=== PATIENT | male | born 1965 | race Caucasian/White ===

== ENCOUNTER 2017-08-15 15:08 | Outpatient (CLI) | payer OTHER | END 2017-08-15 15:09 | disposition home or self-care (01) | LOC: SC 15:08 | PROVIDERS: ATTEND Internal Medicine Pulmonary Disease | DX: G47.30 Sleep apnea, unspecified (principal); R06.83 Snoring | CPT/HCPCS: 99203; 99212 ==

== ENCOUNTER 2017-10-02 19:23 | Outpatient (CLI) | payer OTHER | END 2017-10-02 19:24 | disposition home or self-care (01) | LOC: SC 19:23 | PROVIDERS: ATTEND Internal Medicine Pulmonary Disease | DX: G47.33 Obstructive sleep apnea (adult) (pediatric) (principal); G47.61 Periodic limb movement disorder | CPT/HCPCS: 95810 ==

== ENCOUNTER 2017-10-24 09:04 | Outpatient (CLI) | payer OTHER | END 2017-10-24 09:05 | disposition home or self-care (01) | LOC: SC 09:04 | PROVIDERS: ATTEND Internal Medicine Pulmonary Disease | DX: G47.33 Obstructive sleep apnea (adult) (pediatric) (principal) | CPT/HCPCS: 99212; 99213 ==

== ENCOUNTER 2017-12-05 09:52 | Outpatient (CLI) | payer OTHER | END 2017-12-05 09:53 | disposition home or self-care (01) | LOC: SC 09:52 | PROVIDERS: ATTEND Nurse Practitioner Family | DX: G47.33 Obstructive sleep apnea (adult) (pediatric) (principal) | CPT/HCPCS: 99212; 99214 ==

== ENCOUNTER 2018-03-06 09:40 | Outpatient (CLI) | payer OTHER | END 2018-03-06 09:41 | disposition home or self-care (01) | LOC: SC 09:40 | PROVIDERS: ATTEND Nurse Practitioner Family | DX: G47.33 Obstructive sleep apnea (adult) (pediatric) (principal) | CPT/HCPCS: 99212; 99214 ==

== ENCOUNTER 2018-05-25 08:37 | Outpatient (CLI) | payer OTHER | END 2018-05-25 08:38 | disposition home or self-care (01) | LOC: SC 08:37 | PROVIDERS: ATTEND Nurse Practitioner Family | DX: G47.33 Obstructive sleep apnea (adult) (pediatric) (principal) | CPT/HCPCS: 99212; 99214 ==

== ENCOUNTER 2018-11-09 10:41 | Day surgery (SDC) | payer OTHER ==
[2018-11-09] MEDS ORDERED: fentaNYL 250 MCG/5 ML VIAL IVP ONE (12:56)
[2018-11-09] MEDS ORDERED: MIDAZOLAM 2 MG/2 ML VIAL IVP ONE (12:56)
[2018-11-09] MEDS ORDERED: LACTATED RINGERS 1,000 ML IV ONE (12:56)
[2018-11-09 13:50] VITALS: BP 107/75
== END 2018-11-09 10:42 | disposition home or self-care (01) ==
LOC: SDS 10:41
PROVIDERS: ATTEND Surgery
PROC: 0DJD8ZZ Inspection of Lower Intestinal Tract, Via Natural or Artificial Opening Endoscopic (ICD-10-PCS; principal; 2018-11-09 11:45)
DX: Z12.11 Encounter for screening for malignant neoplasm of colon (principal); E66.9 Obesity, unspecified; K57.30 Diverticulosis of large intestine without perforation or abscess without bleeding; K56.41 Fecal impaction; K64.8 Other hemorrhoids; Z68.38 Body mass index [BMI] 38.0-38.9, adult; Z87.891 Personal history of nicotine dependence
CPT/HCPCS: 45378; J3010; J7120

== ENCOUNTER 2019-08-15 17:05 | Outpatient (CLI) | payer OTHER | END 2019-08-15 17:06 | disposition home or self-care (01) | LOC: COV 17:05 | PROVIDERS: ATTEND Family Medicine | DX: R05 Cough (principal) ==

== ENCOUNTER 2019-08-25 11:02 | Emergency (ER) | payer OTHER ==
--- NOTE | 2019-08-25 11:31 | ED Physician Documentation ---
PD HPI URI - Stated complaint Stated Complaint: C+ SOA - Chief complaint Chief Complaint: Resp - History obtained from History obtained from: Patient - History of Present Illness Timing - onset: How many weeks ago (2-3) Timing duration: Weeks (2) Timing details: Gradual onset, Still present Associated symptoms: Fever, Chills (He started with a cough and some feverishness and general malaise about 2 1/2 to 3 weeks ago. He was tested for [place] it and get the results back 2 weeks ago that was positive. He had been persisting with a cough over the last couple of weeks. His started getting ill about 1 to 1-1/2 weeks ago. The patient states he started having increased trouble breathing with a little bit increased cough and feverish with chills in the last day or 2. Lightly productive cough but no hemoptysis. 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 He developed some cough and fevers about a week after that.). No: Travel, Immunocompromised, COPD / asthma Similar symptoms before: Has not had sx before (He is usually healthy and active and rides a bike about 100 miles a week and does not have any exertionally related chest pain or dyspnea typically) Recently seen: Not recently seen Review of Systems Constitutional: reports: Fever, Chills (the past 1-2 days), Myalgias (for 3 weeks), Fatigue. denies: Weight Loss Nose: denies: Rhinorrhea / runny nose, Congestion Throat: denies: Sore throat Cardiac: denies: Chest pain / pressure, Palpitations, Pedal edema, Calf pain Respiratory: reports: Dyspnea, Cough (for 3 weeks), Wheezing. denies: Hemoptysis GI: denies: Nausea, Vomiting, Diarrhea : denies: Dysuria, Frequency Neurologic: reports: Generalized weakness. denies: Near syncope PD PAST MEDICAL HISTORY - Past Medical History Past Medical History: No Cardiovascular: None Respiratory: None Endocrine/Autoimmune: None GI: None : None HEENT: None Psych: Depression Musculoskeletal: None Derm: None - Past Surgical History Past Surgical History: No HEENT: Tonsil/Adenoidectomy - Present Medications Home Medications: Ambulatory Orders Medication Instructions Recorded Confirmed buPROPion HCL [Bupropion HCl Sr] 150 mg PO DAILY 11/09/18 08/25/19 Albuterol Sulfate [Albuterol 2 puffs IH QID #1 hfa.aer.ad 08/25/19 Sulfate Hfa] Benzonatate [Tessalon Perle] 100 - 200 mg PO TID PRN #30 capsule 08/25/19 Doxycycline Monohydrate 100 mg PO BID #14 tablet 08/25/19 dexAMETHasone [Decadron] 4 mg PO DAILY #5 tablet 08/25/19 guaiFENesin/CODEINE [Robitussin AC] 10 ml PO Q6H PRN #240 ml 08/25/19 - Allergies Allergies/Adverse Reactions: Allergies Allergy/AdvReac Type Severity Reaction Status Date / Time No Known Drug Allergies Allergy Verified 08/25/19 11:21 - Social History Does the pt smoke?: No Smoking Status: Former smoker Does the pt drink ETOH?: Yes Does the pt have substance abuse?: No - Immunizations Immunizations are current?: Yes Immunizations: TDAP current <10years PD ED PE NORMAL - Vitals Vital signs reviewed: Yes - General General: Alert and oriented X 3, Well developed/nourished, Other (Some tachypnea and prolonged exp phase. ) - HEENT HEENT: Moist mucous membranes, Pharynx benign - Neck Neck: Supple, no meningeal sign, No adenopathy - Cardiac Cardiac: RRR, No murmur - Respiratory Respiratory: No: Clear bilaterally (some wheezing. No coarse sounds. ) - Abdomen Abdomen: Soft, Non tender - Derm Derm: Normal color, Warm and dry - Extremities Extremities: No tenderness to palpate, Normal ROM s pain, No edema, No calf tenderness / cord - Neuro Neuro: Alert and oriented X 3, No motor deficit, Normal speech Eye Opening: Spontaneous Motor: Obeys Commands Verbal: Oriented GCS Score: 15 Results - Vitals Vitals: Vital Signs - 24 hr 08/25/19 08/25/19 08/25/19 11:18 12:20 13:21 Temperature 37.0 C Heart Rate 83 80 78 Respiratory 18 20 15 Rate Blood Pressure 128/87 H 150/100 H O2 Saturation 94 97 08/25/19 14:01 Temperature Heart Rate 80 Respiratory 14 Rate Blood Pressure 123/87 H O2 Saturation 95 Oxygen O2 Source Room air - Labs Labs: Laboratory Tests 08/25/19 08/25/19 08/25/19 11:48 11:48 11:48 WBC 7.3 RBC 4.97 Hgb 15.3 Hct 43.9 MCV 88.3 MCH 30.8 MCHC 34.9 RDW 11.9 L Plt Count 157 MPV 10.0 Neut # (Auto) 4.9 Lymph # (Auto) 1.5 [place] # (Auto) 0.8 Eos # (Auto) 0.1 Baso # (Auto) 0.0 Absolute Nucleated RBC 0.00 Nucleated RBC % 0.0 Sodium 138 Potassium 4.0 Chloride 106 Carbon Dioxide 24 Anion Gap 8.0 BUN 14 Creatinine 1.1 Estimated GFR (MDRD) 70 L Glucose 97 Calcium 9.2 Magnesium 2.1 Total Bilirubin 1.0 AST 15 ALT 21 Alkaline Phosphatase 26 L Troponin I High Sens 3.7 B-Natriuretic Peptide Total Protein 7.9 Albumin 4.1 Globulin 3.8 Albumin/Globulin Ratio 1.1 Lipase 36 08/25/19 11:48 WBC RBC Hgb Hct MCV MCH MCHC RDW Plt Count MPV Neut # (Auto) Lymph # (Auto) [place] # (Auto) Eos # (Auto) Baso # (Auto) Absolute Nucleated RBC Nucleated RBC % Sodium Potassium Chloride Carbon Dioxide Anion Gap BUN Creatinine Estimated GFR (MDRD) Glucose Calcium Magnesium Total Bilirubin AST ALT Alkaline Phosphatase Troponin I High Sens B-Natriuretic Peptide 13 Total Protein Albumin Globulin Albumin/Globulin Ratio Lipase - Rads (name of study) chest xcray Radiology: Prelim report reviewed (no infiltrates), See rad report PD MEDICAL DECISION MAKING - ED course Complexity details: reviewed results (He is feeling much improved with an albuterol inhaler and medicines for cough. He is again about 3 weeks into the illness and so should be plateaued or improving on the covered pneumonitis. Sounds likely to be some reactive airway related to it and the cough and consider a secondary bacterial infection 2. At this point I feel comfortable with antibiotic inhaler and steroid that I do not feel that I would be worsening his inflammatory response.), considered differential (He is well into the course of the [place] it infection and timewise should have been on the convalescing side and now has a couple of days of increased cough wheezing and chills. Consider secondary infection as a possibility. Chest x-ray is clear. No signs of heart failure or myocarditis based on blood testing of BNP and troponin.), d/w patient Departure - Departure Disposition: 01 Home, Self Care Clinical Impression: Pneumonia due to COVID-19 virus Dyspnea Qualifiers: Dyspnea type: shortness of breath Qualified Code(s): R06.02 - Shortness of breath Condition: Stable Record reviewed to determine appropriate education?: Yes Instructions: ED URI Viral W Wheezing, COVID-19 [facility] Follow-Up: Roland Delcid MD [Primary Care Provider] - Prescriptions: Albuterol Sulfate [Albuterol Sulfate Hfa] 2 puffs IH QID #1 hfa.aer.ad Benzonatate [Tessalon Perle] 100 - 200 mg PO TID PRN #30 capsule PRN Reason: Cough dexAMETHasone [Decadron] 4 mg PO DAILY #5 tablet Doxycycline Monohydrate 100 mg PO BID #14 tablet guaiFENesin/CODEINE [Robitussin AC] 10 ml PO Q6H PRN #240 ml PRN Reason: Cough Comments: Use the albuterol inhaler 2 puffs or 3 puffs 4 times a day with the spacer regularly. Use it extra times if needed for cough and wheezing. You can continue the Mucinex decongestant. Add Tessalon and codeine cough medicine if needed for cough. At times there can be a bacterial secondary infection on top of the coated bronchitis/pneumonia. We can add doxycycline antibiotic as well for that potential. Otherwise your chest x-ray looks pretty good at this point and your oxygenation level is adequate. We can try having you at home with the above treatments. Return if worsening trouble breathing despite the above interventions. Have a low threshold for returning if you are feeling worse.
[2019-08-25] MEDS ORDERED: KETOROLAC 30 MG/ML VIAL IVP STA (12:14)
[2019-08-25] MEDS ORDERED: guaiFENesin/CODEINE 5 ML UDC PO STA (12:15)
[2019-08-25] MEDS ORDERED: BENZONATATE 100 MG CAPSULE PO STA (12:15)
[2019-08-25] MEDS ORDERED: ALBUTEROL 1 PUFF INH STA (12:16)
[2019-08-25 12:22] LABS: BASOPHILS % (AUTO) 0.3 %; EOSINOPHILS # (AUTO) 0.1 10^3/uL (0.0-0.7); EOSINOPHILS % (AUTO) 1.9 %; HGB - HEMOGLOBIN 15.3 g/dL (14.0-18.0); LYMPHOCYTES # (AUTO) 1.5 10^3/uL (1.5-3.5); LYMPHOCYTES % (AUTO) 19.9 %; MEAN CORPUSCULAR HEMOGLOBIN 30.8 pg (27.0-31.0); MEAN CORPUSCULAR HGB CONC 34.9 g/dL (32.0-36.0); MEAN CORPUSCULAR VOLUME 88.3 fL (80.0-94.0); MONOCYTES # (AUTO) 0.8 10^3/uL (0.0-1.0); MONOCYTES % (AUTO) 10.3 %; NEUTROPHILS # (AUTO) 4.9 10^3/uL (1.5-6.6); NEUTROPHILS % (AUTO) 67.2 %; PLT - PLATELET COUNT 157 10^3/uL (130-450); RED BLOOD COUNT 4.97 10^6/uL (4.70-6.10); RED CELL DISTRIBUTION WIDTH 11.9 % (12.0-15.0); WHITE BLOOD COUNT 7.3 x10^3/uL (4.8-10.8)
[2019-08-25 12:36] LABS: ALBUMIN 4.1 g/dL (3.2-5.5); ALBUMIN/GLOBULIN RATIO 1.1 (1.0-2.2); CALCIUM 9.2 mg/dL (8.5-10.3); CREATININE 1.1 mg/dL (0.6-1.2); MAGNESIUM 2.1 mg/dL (1.7-2.8); TOTAL PROTEIN 7.9 g/dL (6.7-8.2)
--- NOTE | 2019-08-25 13:39 | XRAY Report ---
Reason: cough and dyspnea: COVID pos Procedure Date: 08/25/2019 Accession Number: [id number] / [id number] Procedure: XR - Chest 1 View X-Ray CPT Code: 43997 Final Report FULL RESULT: EXAM: CHEST RADIOGRAPHY EXAM DATE: 08/25/2019 12:56 PM. CLINICAL HISTORY: Cough and dyspnea: COVID pos. COMPARISON: None. TECHNIQUE: 1 view. FINDINGS: Lungs/Pleura: No focal consolidation. Question mild hazy left lung base opacities. No pleural effusion. No pneumothorax. Mediastinum: Within exam limitations, the cardiomediastinal contour is normal. Other: ECG leads overlie the chest. IMPRESSION: Question mild hazy left lung base opacities, which could represent viral pneumonia. Otherwise unremarkable. RADIA
[2019-08-25 14:01] VITALS: BP 123/87
== END 2019-08-25 14:25 | disposition home or self-care (01) ==
LOC: ED 11:02
DX: U07.1 COVID-19 (principal); J12.89 Other viral pneumonia; R06.02 Shortness of breath; Z87.891 Personal history of nicotine dependence
CPT/HCPCS: 36415; 71045; 80053; 83690; 83735; 83880; 84484; 85025; 94640; 94664; 96374; 99283; 99284; A9270

== ENCOUNTER 2020-12-22 17:43 | Outpatient (CLI) | payer BC, OTHER | END 2020-12-22 23:59 | disposition home or self-care (01) | LOC: LAB.N 17:43 | PROVIDERS: ATTEND Physician Assistant Medical | DX: R19.7 Diarrhea, unspecified (principal); Z20.822 Contact with and (suspected) exposure to COVID-19 ==

== ENCOUNTER 2022-12-20 07:09 | Outpatient (CLI) | payer OTHER ==
[2022-12-20 07:33] LABS: BASOPHILS % (AUTO) 0.2 %; EOSINOPHILS # (AUTO) 0.3 10^3/uL (0.0-0.7); EOSINOPHILS % (AUTO) 4.5 %; HCT - HEMATOCRIT 43.9 % (42.0-52.0); HGB - HEMOGLOBIN 15.2 g/dL (14.0-18.0); LYMPHOCYTES # (AUTO) 2.2 10^3/uL (1.5-3.5); LYMPHOCYTES % (AUTO) 34.5 %; MEAN CORPUSCULAR HEMOGLOBIN 30.6 pg (27.0-31.0); MEAN CORPUSCULAR HGB CONC 34.6 g/dL (32.0-36.0); MEAN CORPUSCULAR VOLUME 88.5 fL (80.0-94.0); MEAN PLATELET VOLUME 9.5 fL (7.4-11.4); MONOCYTES # (AUTO) 1.1 10^3/uL (0.0-1.0); NEUTROPHILS # (AUTO) 2.7 10^3/uL (1.5-6.6); NEUTROPHILS % (AUTO) 43.5 %; PLT - PLATELET COUNT 175 10^3/uL (130-450); RED BLOOD COUNT 4.96 10^6/uL (4.70-6.10); RED CELL DISTRIBUTION WIDTH 12.7 % (12.0-15.0); WHITE BLOOD COUNT 6.2 x10^3/uL (4.8-10.8)
[2022-12-20 08:17] LABS: ALBUMIN 4.1 g/dL (3.2-5.5); ALBUMIN/GLOBULIN RATIO 1.6 (1.0-2.2); ALKALINE PHOSPHATASE 26 IU/L (42-121); ALT ALANINE AMINOTRANSFERASE 21 IU/L (10-60); AST ASPARTATE AMINOTRANSFERASE 14 IU/L (10-42); BILIRUBIN,TOTAL 0.9 mg/dL (0.2-1.0); BUN - BLOOD UREA NITROGEN 16 mg/dL (6-20); CALCIUM 9.5 mg/dL (8.5-10.3); CARBON DIOXIDE - CO2 26 mmol/L (21-32); CHLORIDE 108 mmol/L (101-111); CHOL/HDL RATIO 5.6 (<5.0); CHOLESTEROL 178 mg/dL; CREATININE 1.2 mg/dL (0.6-1.3); GFR - MDRD 63 (>89); GLUCOSE 99 mg/dL (74-104); HDL CHOLESTEROL 32 mg/dL; LDL CHOLESTEROL,CALCULATED 102 mg/dL; LDL/HDL RATIO 3.2 (<3.6); POTASSIUM 3.9 mmol/L (3.5-4.5); SODIUM 138 mmol/L (135-145); TOTAL PROTEIN 6.6 g/dL (6.4-8.9); TRIGLYCERIDES 218 mg/dL (48-352); VLDL CHOLESTEROL 44 mg/dL
[2022-12-20 08:49] LABS: THYROID STIMULATING HORMONE 3.46 uIU/mL (0.34-5.60)
[2022-12-20 14:12] LABS: ESTIMATED AVERAGE GLUCOSE 131 mg/dL (70-100); HEMOGLOBIN A1c% 6.2 % (4.27-6.07)
== END 2022-12-20 07:10 | disposition home or self-care (01) ==
LOC: LAB 07:09
PROVIDERS: ATTEND Nurse Practitioner
DX: E78.5 Hyperlipidemia, unspecified (principal); R53.83 Other fatigue; E66.01 Morbid (severe) obesity due to excess calories; Z12.5 Encounter for screening for malignant neoplasm of prostate; F32.A Depression, unspecified
CPT/HCPCS: 36415; 80053; 80061; 83036; 83721; 84153; 84443; 85025

== ENCOUNTER 2024-10-13 12:56 | Observation (INO) ==
--- OUTSIDE RECORDS SUMMARY | 2024-10-13 13:10 | EXTERNAL MEDICAL SUMMARY RPT | Continuity of Care Document ---
Author Organization [facility] Address [address] [place] [id number] Phone Problems date description facility 2024-09-16 09:40 Hyperlipidemia, unspecified [facility] 2024-09-16 09:40 Other fatigue [facility] 2024-09-16 09:40 Encounter for screen ing for malignant neoplasm of prostate [facility] 2024-09-17 00:01 Hyperlipidemia, unspecified [facility] 2024-09-17 00:01 Other fatigue [facility] 2024-09-17 00:01 Encounter for screen ing for malignant neoplasm of prostate [facility] 2024-10-07 08:52 Type 2 diabetes mellitus with h yperglycemia [facility] 2024-10-07 08:53 Type 2 diabetes mellitus with h yperglycemia [facility] 2024-10-08 00:00 Type 2 diabetes mellitus with h yperglycemia [facility] 2024-10-11 00:01 Type 2 diabetes mellitus with h yperglycemia [facility] 2024-10-11 00:01 Type 2 diabetes mellitus withou t complications [facility] 2024-10-11 00:01 Hyperlipidemia, unspecified [facility] 2024-10-11 00:01 Otitis media, unspecified, righ t ear [facility] 2024-10-11 00:01 Constipation, unspecified [facility] 2024-10-11 00:01 Low back pain, unspecified [facility] Results/Labs test date facility value unit notes Result panel 1 ESTIMATED AVERAGE GLUCOSE 2024-10-07 08:58 [facility] 12 0 mg/dl (missing) HEMOGLOBIN A1c% 2024-10-07 08:58 [facility] 5.8 % Social History date description facility
[2024-10-13] MEDS: MORPHINE 2 MG/ML CARPUJECT IM STA (14:20)
--- NOTE | 2024-10-13 15:00 | CT Report ---
PROCEDURE: CT Lumbar Spine WO INDICATIONS: lower back pain TECHNIQUE: Noncontrast images acquired from the T12 level to the sacrum. Sagittal and coronal reformats were constructed. For radiation dose reduction, the following was used: automated exposure control, adjustment of mA and/or kV according to patient size. COMPARISON: None. FINDINGS: Image quality: Excellent. Bones: Trace levoconvex curvature. No acute vertebral body compression fractures. No suspicious lytic or blastic bony lesions. Central spinal caliber is of normal overall caliber. No pars defects. T12-L1: No significant spinal canal stenosis or neuroforaminal narrowing. L1-L2: Mild circumferential disc bulging. No significant spinal canal stenosis or neuroforaminal narrowing. L2-L3: Mild circumferential disc bulging. No significant spinal canal stenosis or neuroforaminal narrowing. L3-L4: Mild loss of disc space height and circumferential disc bulging as well as mild facet hypertrophy and buckling of the ligamentum flavum. Findings result in mild narrowing of the spinal canal and mild to moderate bilateral neuroforaminal narrowing. L4-L5: Circumferential disc bulging with suspected left paracentral disc protrusion and bilateral facet hypertrophy. Findings result in mild to moderate narrowing of the central spinal canal with effacement of the left lateral recess as well as moderate left and mild right neural foraminal narrowing. L5-S1: Mild circumferential disc bulging and mild bilateral facet hypertrophy, which result in mild narrowing of the neural foramina without significant spinal canal stenosis but Soft tissues: No retroperitoneal masses or hematomas. Visualized aorta is normal in caliber. IMPRESSION: 1.At L4-5, suspected left paracentral disc protrusion or extrusion resulting in effacement of the left lateral recess, moderate left neural foraminal narrowing, and mild to moderate narrowing of the spinal canal. MRI could be performed for further evaluation if indicated clinically. 2.Additional multilevel degenerative disc disease and facet hypertrophy as described in the body of the report. Reviewed by: Zeke Harper MD on 10/13/2024 1:59 PM KRISS Approved by: Zeke Harper MD on 10/13/2024 1:59 PM KRISS Station ID: [id number]
[2024-10-13] MEDS: KETOROLAC 30 MG/ML VIAL IM STA (15:19)
[2024-10-13] MEDS: LIDOCAINE PATCH 4% TOP STA (15:20)
[2024-10-13] MEDS: CYCLOBENZAPRINE 10 MG TABLET PO STA (15:21)
[2024-10-13] MEDS: predniSONE 20 MG TABLET PO STA (16:20)
[2024-10-13] MEDS: HYDROmorphone 0.5 MG/0.5 ML SYRINGE IM STA (16:55)
--- NOTE | 2024-10-13 19:02 | ED Physician Documentation ---
History of Present Illness Stated complaint Stated Complaint: BACK PX Chief complaint Chief Complaint: Back Pain History obtained from History obtained from: Patient History of Present Illness Timing: Prior to arrival Additonal information Additional information: Patient is a 59-year-old male presenting to the emergency department with lower back pain symptoms have been going on for the last few days. He saw his chiropractor twice this week for persistent pain which he feels only gave him relief for a few minutes and then developed severe back pain again. He notes his pain was so severe this morning he could not get up off the floor. Denies any recent trauma no nausea or vomiting no urinary symptoms or incontinence. No fevers associate with his symptoms. Meds/Allgy Home Medications Ambulatory Orders Medication Instructions Recorded Confirmed metformin 500 mg tablet 500 mg PO BID #60 tabs 06/1910/10/24 ofloxacin 0.3 % ear drops 10 drp otic (ear) QDAY #5 mL 10/10/24 10/10/24 semaglutide 1 mg/dose (4 mg/3 mL) 1 mg (0.75 mL) subcu t QWEEK #3 mL 10/10/24 10/10/24 subcutaneous pen injector (Ozempic) Allergies Allergies Allergy/AdvReac Type Severity Reaction Status Date / Time No Known Drug Allergies Allergy Verified 10/13/24 13:03 PFSH Active Problems All Active Problems (Updated 10/13/24 @ 19:22 by Daniela Coronado PA-C) Sciatica (Acute) Back pain (Acute) Constipation (Acute) Low back pain potentially associated with radiculopathy (Acute) Type 2 diabetes mellitus (Acute) Otitis media, right (Acute) Hyperlipidemia (Acute) Depression (Acute) Social History Social History (Updated 10/10/24 @ 13:28 by Serenity Abad MA) Smoking Status: Former smoker If you are a former smoker, when did you quit? (Date/Year): quit 2007 Number of Years Smoked: 25 Second hand tobacco smoke exposure: Yes Do you dip or chew tobacco?: No Do you vape?: No Living arrangement: At home Marital Status: Living Condition: With spouse/s.o. and With family Support Person: Yes Relationship: Physical Activity: other Level: Independent Do you feel safe in your home environment?: Yes Suffered physical, verbal, emotional, or financial abuse?: No History of Abuse: No ETOH Use: None and Beer Frequency: Occasional Substance Use: denies use POLST Patient has POLST: No Exam Exam Vital Signs: Vital Signs x48h Temp Pulse Resp BP Pulse Ox 10/13/24 18:39 86 16 124/76 96 10/13/24 13:00 37.6 C 83 20 130/81 99 Constitutional normal general appearance HENMT normocephalic and head/scalp atraumatic Eyes PERRL, EOMs intact bilaterally and conjunctivae normal Neck/C-Spine visual inspection normal Lymph no lymphadenopathy noted Chest inspection of chest normal Respiratory breath sounds equal bilaterally, normal respiratory effort and clear to auscultation bilaterally Cardiovascular normal heart rate noted, regular rhythm noted and no gallop Gastrointestinal abdomen normal to inspection Back/Pelvis Reproducible lumbar spinous process tenderness on examination of lower spine. Extremities Decreased strength in bilateral lower legs with sensation intact throughout. Positive straight leg raise on the left compared to right on examination. Results Vitals Vitals: Vital Signs - 24 hr 10/13/24 13:00 10/13/24 14:20 10/13/24 15:00 Temperature 37.6 C Temperature Source Oral Pulse Rate 83 Respiratory Rate 20 Blood Pressure 130/81 O2 Saturation 99 O2 Source Room air Pain Intensity 9 8 8 10/13/24 15:19 10/13/24 16:21 10/13/24 16:55 Temperature Temperature Source Pulse Rate Respiratory Rate Blood Pressure O2 Saturation O2 Source Pain Intensity 8 8 8 10/13/24 18:25 10/13/24 18:39 10/13/24 19:54 Temperature Temperature Source Pulse Rate 86 Respiratory Rate 16 Blood Pressure 124/76 O2 Saturation 96 O2 Source Room air Pain Intensity 6 5 9 Oxygen O2 Source Room air Rads (name of study) CT lumbar spine: Relevant Findings:: Final report received and EMP independent interpretation of test Interpretation: 1.At L4-5, suspected left paracentral disc protrusion or extrusion resulting in effacement of the left lateral recess, moderate left neural foraminal narrowing, and mild to moderate narrowing of the spinal canal. MRI could be performed for further evaluation if indicated clinically. 2.Additional multilevel degenerative disc disease and facet hypertrophy as described in the body of the report. PD Medical Decision Making ED course Complexity details: reviewed old records and reviewed results ED course: Patient is a 59-year-old male presenting to the emergency department with lower back pain. Symptoms have been going on for the past few days. Patient has No history of chronic lower back pain. He has sensation on palpation of lower legs he has significant pain with slight movement and positive straight leg raise on examination palpable pulses no obvious swelling no pitting edema. Vital stable here in the ED. Will obtain CT scan of concerns for recent trauma given recent chiropractic surgery. CT lumbar spine: 1.At L4-5, suspected left paracentral disc protrusion or extrusion resulting in effacement of the left lateral recess, moderate left neural foraminal narrowing, and mild to moderate narrowing of the spinal canal. MRI could be performed for further evaluation if indicated clinically. 2.Additional multilevel degenerative disc disease and facet hypertrophy as described in the body of the report. Patient continues to have pain attempts to ambulate at bedside were performed but patient unable to bear weight despite walker and feels numbness to his left leg. Will send patient for MRI for evaluation for possible cauda equina. MRI lumbar spine: Left subarticular disc protrusion at L4-5, contacting the exiting L4 nerve root and causing moderate spinal canal narrowing. Attempts to ambulate were made again he has received a total of 1 mg of Dilaudid prior to second attempt for ambulation and patient is reporting his left leg feels numb he is unable to ambulate given MRI showing no signs of cauda equina he is not having any incontinence symptoms or saddle anesthesia no fevers suspect patient will require admission for retractable pain at this point. Discussed with patient he would prefer to be admitted and evaluated by physical therapy in the morning. I did discuss with on-call nurse practitioner Madhu who is agreeable with admission at this time. He will manage patient's pain overnight and patient is comfortable with this plan. Discharge Plan Discharge Patient Disposition: 66 [facility] DC/Xfer Condition: Good Clinical Impression: Back pain, Sciatica Prescriptions: No Action metformin 500 mg tablet 500 mg PO BID Qty: 60 11RF Ozempic 1 mg/dose (4 mg/3 mL) pen injector 1 mg subcut QWEEK Qty: 3 11RF ofloxacin 0.3 % drops 10 drp otic (ear) QDAY Qty: 5 0RF Rx Instructions: Instill 10 drops into right ear once daily for 7 days. Print Language: Trinidadian
--- NOTE | 2024-10-13 19:11 | MRI Report ---
PROCEDURE: MRI Lumbar Spine WO INDICATIONS: lower back concern for cauda equina TECHNIQUE: Multiplanar, multisequence MRI of the lumbar spine was performed, without intravenous contrast. COMPARISON: Same day CT FINDINGS: Image quality: Excellent. Alignment and Curvature: There is normal bony alignment. Bone Marrow: Marrow is of normal overall signal. No acute vertebral body compression fractures. Spinal Cord: Conus medullaris terminates at the L1-L2 level. Visualized cord demonstrates normal signal and size. Paraspinous Soft Tissues: No paravertebral masses. T12-L1: Normal in appearance. L1-L2: Normal in appearance. L2-L3: Broad-based bulge, ligamentum flavum hypertrophy. L3-L4: Broad-based bulge. Mild right neural foraminal narrowing . Mild spinal canal narrowing. L4-L5: Left subarticular disc protrusion contacting the exiting L4 nerve root and causing moderate spinal canal narrowing. Bilateral facet atrophy. L5-S1: Broad-based bulge. Mild facet hypertrophy. IMPRESSION: Left subarticular disc protrusion at L4-5, contacting the exiting L4 nerve root and causing moderate spinal canal narrowing. Reviewed by: Kiel Hou MD on 10/13/2024 7:10 PM PDT Approved by: Kiel Hou MD on 10/13/2024 7:10 PM PDT Station ID: [id number]
[2024-10-13] MEDS: HYDROmorphone 1 MG/ML CARPUJECT IM STA (19:54)
--- NOTE | 2024-10-13 21:06 | HISTORY & PHYSICAL EXAMINATION ---
Chief Complaint Chief Complaint Chief Complaint: Back pain History of Present Illness History Obtained From History obtained from: Patient interview History of Present Illness HPI Comment/Other: 59-year-old male PMH significant for diabetes on metformin and semaglutide presents with lower back pain. He reports his pain has been going on for some time, worsening to include numbness on the lateral aspect of his left leg and calf. He is attempted palliation with Tylenol, NSAIDs. He has not been to the chiropractor in a long time, but he went twice within the past week. He states the pain is bad enough today that after sitting down on the toilet this morning, he was unable to stand up and stayed on the floor in the bathroom for some time before finally calling paramedics.. He denies bowel/bladder irregularities or saddle anesthesia In the ER, CT L-spine was performed which showed some disc protrusion. MRI L- spine was performed which showed left subarticular disc protrusion at L4-5, that contacts the L4 nerve root. Multiple doses of IV pain medication were attempted, and patient is still unable to walk without severe pain. Hospitalist was contacted for intractable back pain Meds/Allgy Home Medications Ambulatory Orders Medication Instructions Recorded Confirmed metformin 500 mg tablet 500 mg PO BID #60 tabs 06/1910/10/24 ofloxacin 0.3 % ear drops 10 drp otic (ear) QDAY #5 mL 10/10/24 10/10/24 semaglutide 1 mg/dose (4 mg/3 mL) 1 mg (0.75 mL) subcu t QWEEK #3 mL 10/10/24 10/10/24 subcutaneous pen injector (Ozempic) Allergies Allergies Allergy/AdvReac Type Severity Reaction Status Date / Time No Known Drug Allergies Allergy Verified 10/13/24 13:03 [facility] Active Problems All Active Problems (Updated 10/13/24 @ 19:22 by Daniela Coronado PA-C) Sciatica (Acute) Back pain (Acute) Constipation (Acute) Low back pain potentially associated with radiculopathy (Acute) Type 2 diabetes mellitus (Acute) Otitis media, right (Acute) Hyperlipidemia (Acute) Depression (Acute) Social History Social History (Updated 10/10/24 @ 13:28 by Serenity Abad MA) Smoking Status: Former smoker If you are a former smoker, when did you quit? (Date/Year): quit 2007 Number of Years Smoked: 25 Second hand tobacco smoke exposure: Yes Do you dip or chew tobacco?: No Do you vape?: No Living arrangement: At home Marital Status: Living Condition: With spouse/s.o. and With family Support Person: Yes Relationship: Physical Activity: other Level: Independent Do you feel safe in your home environment?: Yes Suffered physical, verbal, emotional, or financial abuse?: No History of Abuse: No ETOH Use: None and Beer Frequency: Occasional Substance Use: denies use POLST Patient has POLST: No Review of Systems Status of ROS: 10 or more systems reviewed and unremarkable except as noted in history and below Constitutional Denies: Fever or Chills Cardiovascular Denies: Irregular heart rate, chest pain, palpitations or shortness of breath with exertion Respiratory Denies: Shortness of breath or Cough Gastrointestinal Denies: Abdominal pain or Abdominal distention Genitourinary Denies: Painful urination Musculoskeletal Reports: Back pain Neurological Denies: Headache, General weakness or Focal weakness Exam Exam Vital Signs: Vital Signs x48h Pulse Resp BP Pulse Ox 10/13/24 21:33 73 18 95/73 94 10/13/24 18:39 86 16 124/76 96 Constitutional normal general appearance and no apparent distress Obese middle-age male HENMT normocephalic and head/scalp atraumatic Eyes PERRL Neck/C-Spine visual inspection normal Lymph no lymphadenopathy noted Chest inspection of chest normal Respiratory breath sounds equal bilaterally and normal respiratory effort Cardiovascular normal heart rate noted and regular rhythm noted Gastrointestinal abdomen normal to inspection Back/Pelvis spine normal to inspection Tender to palpation in the lumbosacral region. He reports the pain is mostly in the paraspinal muscles and describes as grabbing Extremities normal to inspection Neurology GCS 15 Psychiatry oriented x3 Skin skin color normal Conclusion/Plan Problem List (1) Back pain: Plan: Received 2 doses of hydromorphone, 1 dose of morphine, Toradol x 1, prednisone, Flexeril, lidocaine x 1 in the ER PT/OT ordered Flexeril 10 mg p.o. 3 times daily Oxycodone 5 mg p.o. every 4 hour Hydromorphone 0.5 mg IV every 2 hours as needed Tylenol 1 g p.o. 3 times daily Would likely benefit from PT services at discharge, awaiting PT/OT recommendations (2) Type 2 diabetes mellitus: Plan: Managed with metformin and semaglutide in the outpatient setting Check A1c SSI Plan Placed in observation Full code His is his surrogate decision-maker Lab Results 10/13/24 21:28 10/13/24 21:28 Diagnostic Imaging Results Diagnostic Imaging Results: positive Final report reviewed Core Measures Anticipated LOS I expect patient to be DC'd or transferred within 96 hours.: Yes DVT/VTE - Prophylaxis VTE/DVT Prophylaxis med ordered at admit?: Yes
[2024-10-13 21:33] LABS: HCT - HEMATOCRIT 45.2 % (42.0-52.0); HGB - HEMOGLOBIN 15.9 g/dL (14.0-18.0); MEAN CORPUSCULAR HEMOGLOBIN 30.7 pg (27.0-31.0); MEAN CORPUSCULAR HGB CONC 35.2 g/dL (32.0-36.0); MEAN CORPUSCULAR VOLUME 87.3 fL (80.0-94.0); MEAN PLATELET VOLUME 9.6 fL (7.4-11.4); RED BLOOD COUNT 5.18 10^6/uL (4.70-6.10); RED CELL DISTRIBUTION WIDTH 11.9 % (12.0-15.0)
[2024-10-13 21:46] LABS: CALCIUM 9.7 mg/dL (8.5-10.3); CREATININE 1.2 mg/dL (0.6-1.3); POTASSIUM 4.6 mmol/L (3.5-4.5)
[2024-10-13] MEDS ORDERED: ONDANSETRON 4 MG/2 ML VIAL IVP PRN (22:04)
[2024-10-13] MEDS ORDERED: HYDROmorphone 0.5 MG/0.5 ML SYRINGE IVP PRN (22:04)
[2024-10-13] MEDS ORDERED: SODIUM CHLORIDE FLUSH 0.9% 10 ML SYRINGE IVP PRN (22:04)
[2024-10-13] MEDS ORDERED: ONDANSETRON ODT 4 MG TABLET TL PRN (22:04)
[2024-10-13] MEDS: ACETAMINOPHEN 500 MG TABLET PO SCH (22:34)
[2024-10-13] MEDS: CYCLOBENZAPRINE 10 MG TABLET PO SCH (22:35)
[2024-10-14 04:45] LABS: BASOPHILS % (AUTO) 0.1 %; EOSINOPHILS % (AUTO) 0.4 %; HCT - HEMATOCRIT 44.1 % (42.0-52.0); HGB - HEMOGLOBIN 15.2 g/dL (14.0-18.0); LYMPHOCYTES # (AUTO) 1.6 10^3/uL (1.5-3.5); LYMPHOCYTES % (AUTO) 17.3 %; MEAN CORPUSCULAR HEMOGLOBIN 30.8 pg (27.0-31.0); MEAN CORPUSCULAR HGB CONC 34.5 g/dL (32.0-36.0); MEAN CORPUSCULAR VOLUME 89.5 fL (80.0-94.0); MEAN PLATELET VOLUME 9.8 fL (7.4-11.4); MONOCYTES # (AUTO) 0.9 10^3/uL (0.0-1.0); MONOCYTES % (AUTO) 10.1 %; NEUTROPHILS # (AUTO) 6.6 10^3/uL (1.5-6.6); NEUTROPHILS % (AUTO) 71.8 %; PLT - PLATELET COUNT 170 10^3/uL (130-450); RED BLOOD COUNT 4.93 10^6/uL (4.70-6.10); RED CELL DISTRIBUTION WIDTH 11.9 % (12.0-15.0); WHITE BLOOD COUNT 9.2 x10^3/uL (4.8-10.8)
[2024-10-14 04:51] VITALS: TEMP 97.9
[2024-10-14 05:04] LABS: CALCIUM 9.3 mg/dL (8.5-10.3); POTASSIUM 4.4 mmol/L (3.5-4.5)
[2024-10-14] MEDS: SODIUM CHLORIDE FLUSH 0.9% 10 ML SYRINGE IVP SCH (05:40)
[2024-10-14 07:55] VITALS: O2SAT 93
[2024-10-14] MEDS: INSULIN LISPRO 300 UNIT/3 ML PEN SUBQ SCH (08:01)
[2024-10-14] MEDS: oxyCODONE 5 MG TABLET PO PRN (08:07)
[2024-10-14] MEDS: ENOXAPARIN 40 MG/0.4 ML SYRINGE SUBQ SCH (08:08)
[2024-10-14 08:29] LABS: ESTIMATED AVERAGE GLUCOSE 120 mg/dL (70-100); HEMOGLOBIN A1c% 5.8 % (4.27-6.07)
--- NOTE | 2024-10-14 09:47 | PHARMACY PROGRESS NOTE ---
Best Possible Medication History Admit Date and Time: 10/13/242050 Home Medications Medication Instructions Recorded Confirmed Type metformin 500 mg tablet 500 mg PO BID #60 tabs 06/1910/14/24 Rx atorvastatin 10 mg tablet (Lipitor) 10 mg PO QPM 10/1410/14/24 History lisinopril 5 mg tablet 5 mg PO DAILY 10/14/2410/14 History semaglutide 1 mg/dose (4 mg/3 mL) 0.5 mg subcut FR 10/14/24 History subcutaneous pen injector (Ozempic) sertraline 100 mg tablet 100 mg PO DAILY 10/14/24 History Processed by: Pharmacy Medications reviewed in ED?: No Medication History completed: Yes Patient Interview: Completed Secondary Source(s): Prescription bottles, Pharmacy records and Insurance records [facility] Statement: As the person ultimately responsible for medication therapy, providers are able to order a medication from an existing home medication list in [facility] via the "Reconcile Routine" prior to Confirmation of that medication by support team assoc. Such practice is discouraged except when the physician, in their clinical judgment, deems that a medical need exists for a medication without regard to previous use.
[2024-10-14 11:49] VITALS: BP 112/81
--- NOTE | 2024-10-14 13:19 | PT Plan of Care ---
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 Please see chart for complete medical hx. The pt was received resting in a semi- recumbent position in bed and appeared to have difficulty achieving a comfortable position. He presented today with good B UE and LE strength, impaired L LE sensation, restricted tissue extensibility about the L buttocks, and subjective report of intense LBP with L LE referral which limited his tolerance with functional mobility. He was receptive to education provided for seated piriformis stretching and s/s to encourage centralization of LE paresthesias during functional mobility. At this time the pt does not appear to require continued skilled PT intervention while in the acute setting, however, it is strongly encouraged that he begin OPPT to address his LBP and LE paresthesias. This plan was discussed with the pt, he was in agreement with this. At the end of the session the pt was sitting up in a chair with call light in reach and all needs met. DNP updated on pt's status and DC rec, no goals will be set as this is an eval only. PLAN Frequency: Evaluation only, no further P.T. DISCHARGE RECOMMENDATIONS Discharge Location: Previous Living Situation Support/Services Needed: Outpt. P.T. Transport Needs at Discharge: Personal vehicle
[2024-10-14] MEDS: SERTRALINE 50 MG TABLET PO SCH (13:33)
[2024-10-14] MEDS: lisinopriL 5 MG TABLET PO SCH (13:33)
[2024-10-14] MEDS ORDERED: dexAMETHasone 4 MG TABLET PO SCH (17:00)
--- NOTE | 2024-10-14 18:50 | Discharge Summary ---
Discharge Summary Admit Date: 10/13/24 Discharge Date: 10/14/24 Discharging Provider: Madhu Cruz Primary Care Provider: Rosa Dwyer Code Status: Attempt Resuscitation DIAGNOSES Admission Diagnoses: Intractable back pain Type 2 diabetes mellitus Discharge Diagnoses with Status of Each Condition: Intractable back paincontrolled on oral medication Type 2 diabetes mellituschronic HPI History of Present Illness: 59-year-old male H significant for diabetes on metformin and semaglutide presents with lower back pain. He reports his pain has been going on for some time, worsening to include numbness on the lateral aspect of his left leg and calf. He is attempted palliation with Tylenol, NSAIDs. He has not been to the chiropractor in a long time, but he went twice within the past week. He states the pain is bad enough today that after sitting down on the toilet this morning, he was unable to stand up and stayed on the floor in the bathroom for some time before finally calling paramedics.. He denies bowel/bladder irregularities or saddle anesthesia In the ER, CT L-spine was performed which showed some disc protrusion. MRI L- spine was performed which showed left subarticular disc protrusion at L4-5, that contacts the L4 nerve root. Multiple doses of IV pain medication were attempted, and patient is still unable to walk without severe pain. Hospitalist was contacted for intractable back pain HOSPITAL COURSE Hospital Course: Patient was held overnight and started on aggressive IV pain medication. He worked with physical therapy today, who recommends outpatient PT. I am discharging him with a short course of Flexeril, oxycodone and he will follow-up with his primary care provider and undergo outpatient physical therapy ALLERGIES Allergies Allergy/AdvReac Type Severity Reaction Status Date / Time No Known Drug Allergies Allergy Verified 10/13/24 13:03 MEDICATIONS Ambulatory Orders Medication Instructions Recorded Confirmed metformin 500 mg tablet 500 mg PO BID #60 tabs 06/1910/14/24 atorvastatin 10 mg tablet (Lipitor) 10 mg PO QPM 10/1410/14/24 cyclobenzaprine 10 mg tablet 10 mg PO TID 30 days #90 tabs 10/14/24 dexamethasone 4 mg tablet 4 mg PO BIDWM 10 days #20 ta bs 10/14/24 lisinopril 5 mg tablet 5 mg PO DAILY 05/25/25 05/25 /25 oxycodone 5 mg tablet 5 mg PO Q4HR PRN Pain 5 to 7 #20 10/14/24 tabs semaglutide 1 mg/dose (4 mg/3 mL) 0.5 mg subcut FR 10/14/24 subcutaneous pen injector (Ozempic) sertraline 100 mg tablet 100 mg PO DAILY 10/14/24 PHYSICAL EXAM AT DISCHARGE Vital Signs: Vital Signs x48h Temp Pulse Resp BP Pulse Ox 10/14/24 11:48 36.6 C 79 18 112/81 93 General Appearance: positive No acute distress and Alert Eyes Bilateral: positive Normal inspection and PERRL ENT: positive ENT inspection nml Neck: positive Nml inspection Respiratory: positive Chest non-tender Cardiovascular: positive Regular rate & rhythm Peripheral Pulses: positive 2+ Abdomen: positive Non-tender Back: positive Nml inspection and Other (Tenderness in the paraspinal musculature) Skin: positive Color nml Extremities: positive Non-tender Neurologic/Psychiatric: positive Oriented x3 and Other (Pain and numbness along lateral aspect of left leg) LABS 10/14/24 04:21 10/14/24 04:21 FOLLOW UP Follow Up: With PCP TIME SPENT Time Spent in Discharge (Minutes): 40 Discharge Plan Discharge Patient Disposition: 01 Home, Self Care Condition: Good Prescriptions: New cyclobenzaprine 10 mg Tablet 10 mg PO TID 30 Days Qty: 90 0RF dexamethasone 4 mg Tablet 4 mg PO BIDWM 10 Days Qty: 20 0RF oxycodone 5 mg Tablet 5 mg PO Q4HR PRN (Reason: Pain 5 to 7) Qty: 20 0RF Continued atorvastatin [Lipitor] 10 mg tablet 10 mg PO QPM lisinopril 5 mg tablet 5 mg PO DAILY sertraline 100 mg tablet 100 mg PO DAILY Ozempic 1 mg/dose (4 mg/3 mL) pen injector 0.5 mg subcut FR metformin 500 mg tablet 500 mg PO BID Qty: 60 11RF Diet: Regular Interventions: Belongings Inventory Last Done: 10/14/24 14:10 Discharge Last Done: 10/14/24 15:32 Discharge Checklist - Nursing Last Done: 10/14/24 15:32 Health Concerns: You came into the hospital because you been having worsening back pain. The MRI of your back shows a disc protrusion at the level of L4/5, which does contact the exiting L4 nerve root. This is what is causing the pain and numbness on the left leg. You were held overnight so that we can get your pain under control, and you were seen by physical therapy. They recommend outpatient physical therapy, which your primary care provider has already set up. I am sending you home with a short course of oxycodone as well as a steroid called dexamethasone and a muscle relaxer called cyclobenzaprine. Please take these as directed. I would encourage you to keep a regular schedule with your Cyclobenzaprine. I would also like for you to take Tylenol [id number]. Please aim for a total daily dose of 3 g, and no more than 4 g in a day. Please reach out to healthcare provider with any worsening symptoms, including those symptoms I mentioned of numbness between your legs or bowel or bladder abnormalities Print Language: Irish Patient Instructions: Lumbar Radiculopathy, ED Sciatica Follow-up Care: Rosa Dwyer ARNP [Primary Care Provider] -
[2024-10-14] MEDS ORDERED: ATORVASTATIN 10 MG TABLET PO SCH (21:00)
== END 2024-10-14 15:30 | disposition home or self-care (01) ==
LOC: MS2 12:56 → ED 12:56 → MS2 21:56
PROVIDERS: ADMIT Nurse Practitioner Acute Care; ATTEND Nurse Practitioner Acute Care
DX: R52 Pain, unspecified; M51.16 Intervertebral disc disorders with radiculopathy, lumbar region; R20.2 Paresthesia of skin; Z79.85 Long-term (current) use of injectable non-insulin antidiabetic drugs; Z79.84 Long term (current) use of oral hypoglycemic drugs; E11.9 Type 2 diabetes mellitus without complications; Z87.891 Personal history of nicotine dependence